=== PATIENT | male | born 1945 | race Two or more races ===

== ENCOUNTER 2019-10-31 11:02 | Emergency (ER) | payer OTHER ==
[~2019-10-31] VITALS: Ht 162.6 cm; Wt 68.0 kg
[2019-10-31] MEDS ORDERED: LIPITOR40 M1 PO (11:17)
[2019-10-31] MEDS ORDERED: ALTACE10 MG PO (11:17)
[2019-10-31] MEDS ORDERED: ECOTRIN81 MG PO (11:17)
[2019-10-31] MEDS ORDERED: ISOSORBIDE MONO60 MG PO (11:17)
[2019-10-31] MEDS ORDERED: GLIPIZIDE XL10 MG PO (11:18)
[2019-10-31] MEDS ORDERED: LASIX40 MG PO (11:18)
[2019-10-31] MEDS ORDERED: SPIRONOLACTONE25 MG PO (11:18)
[2019-10-31] MEDS ORDERED: FENOFIBRATE200 MG PO (11:18)
[2019-10-31] MEDS ORDERED: JANUMET 50-1,01 EACH PO (11:19)
== END 2019-10-31 19:35 | disposition designated cancer center or children's hospital (05) ==
LOC: ER 11:02
DX: N45.4 Abscess of epididymis or testis (principal); N45.2 Orchitis; N39.0 Urinary tract infection, site not specified; B96.5 Pseudomonas (aeruginosa) (mallei) (pseudomallei) as the cause of diseases classified elsewhere; B95.2 Enterococcus as the cause of diseases classified elsewhere; R31.0 Gross hematuria; Z03.818 Encounter for observation for suspected exposure to other biological agents ruled out; R50.9 Fever, unspecified; R53.81 Other malaise; R53.1 Weakness

== ENCOUNTER 2023-04-23 20:56 | Emergency (ER) | payer OTHER ==
[~2023-04-23] VITALS: Ht 165.1 cm; Wt 63.5 kg
[~2023-04-23 20:56] MED LIST: ALTACE10 MG PO; ECOTRIN81 MG PO; FENOFIBRATE200 MG PO; GLIPIZIDE XL10 MG PO; ISOSORBIDE MONO60 MG PO; JANUMET 50-1,01 EACH PO; LASIX40 MG PO; LIPITOR40 M1 PO; SPIRONOLACTONE25 MG PO
[2023-04-23 21:38] LABS: HEMATOCRIT 47.3 % (39.0-48.0); HEMOGLOBIN 15.9 g/dL (13-16.00); MEAN CELL VOLUME 90.4 fL (80.0-100.00); MEAN CORPUSCULAR HEMOGLOBIN 30.4 pg (27.00-32.0); MEAN CORPUSCULAR HGB CONC 33.7 g/dl (32.0-36.0); PLATELET COUNT 192 K/uL (150-450); RED BLOOD COUNT 5.23 M/uL (4.00-6.00); RED CELL DISTRIBUTION WIDTH 16.6 % (11.5-14.5)
[2023-04-23 22:05] LABS: BILIRUBIN TOTAL 1.5 mg/dL (0.3-1.2); CALCIUM 9.4 mg/dL (8.5-10.1); CREATININE SERUM 1.16 mg/dL (0.70-1.30); GFR 60.89; GLOBULINA 3.9 G/DL (2.4-3.5); POTASSIUM 3.88 mEq/L (3.5-5.1); TOTAL PROTEIN 7.9 gm/dL (6.4-8.2)
[2023-04-23 22:30] LABS: URINE APPEARANCE Clear; URINE BILIRRUBIN Negative (NEGATIVE); URINE BLOOD Moderate; URINE COLOR Yellow; URINE GLUCOSE Negative (NEGATIVE); URINE LEUKOCYTE Negative; URINE NITRATE Negative; URINE PROTEIN Negative (NEGATIVE); URINE UROBILINOGEN 0.2 E.U./dl
[2023-04-23 22:34] LABS: URINE BACTERIA 8.8 uL (0.0-1933); URINE EPITHELIAL CELLS 3.2 uL (0.0-38.8)
[2023-04-23 22:47] LABS: URINE WBC 1.5 uL (0.0-23.2)
[2023-04-23] MEDS ORDERED: CIPRO500 MG PO (23:03)
== END 2023-04-23 23:53 | disposition home or self-care (01) ==
LOC: ER 20:56
PROVIDERS: General Practice
DX: R33.8 Other retention of urine (principal); N39.0 Urinary tract infection, site not specified; E11.9 Type 2 diabetes mellitus without complications; Z79.84 Long term (current) use of oral hypoglycemic drugs; I10 Essential (primary) hypertension; N40.0 Benign prostatic hyperplasia without lower urinary tract symptoms